=== PATIENT | female | born 1985 | race Caucasian/White ===

== ENCOUNTER 2025-01-04 18:48 | Emergency (ER) | payer OTHER ==
[~2025-01-04] VITALS: Ht 167.6 cm; Wt 81.6 kg
[2025-01-04 18:59] VITALS: TEMP 98
[2025-01-04] MEDS ORDERED: HYDROCODONE/APAP 5/325MG TABLET ONE (19:11)
[2025-01-04] MEDS ORDERED: IBUPROFEN 600 MG TABLET ONE (19:12)
[2025-01-04] MEDS ORDERED: TDAP [DIPH/PERTUSSIS/TET] 0.5 ML VIAL IM ONE (19:12)
[2025-01-04] MEDS: TDAP [DIPH/PERTUSSIS/TET] 0.5 ML VIAL IM ONE (19:20)
[2025-01-04] MEDS: HYDROCODONE/APAP 5/325MG TABLET PO ONE (19:20)
[2025-01-04] MEDS: IBUPROFEN 600 MG TABLET PO ONE (19:21)
[2025-01-04] MEDS ORDERED: IBUP-1490 PO (20:20)
[2025-01-04 20:24] VITALS: BP 135/77; O2SAT 98
== END 2025-01-04 20:24 | disposition home or self-care (01) ==
LOC: ER 18:52
DX: S46.811A Strain of other muscles, fascia and tendons at shoulder and upper arm level, right arm, initial encounter (principal); S50.01XA Contusion of right elbow, initial encounter; F41.9 Anxiety disorder, unspecified; F32.A Depression, unspecified; Z88.0 Allergy status to penicillin; V43.12XA Car passenger injured in collision with other type car in nontraffic accident, initial encounter; Y93.89 Activity, other specified; Y92.415 Exit ramp or entrance ramp of street or highway as the place of occurrence of the external cause; Y99.8 Other external cause status
CPT/HCPCS: 99284; 90471; 90715; 73080; 73030; A6403